=== PATIENT | male | born 1940 | race Caucasian/White ===

== ENCOUNTER 2018-04-25 14:58 | Inpatient (IN) ==
[2018-04-25] MEDS ORDERED: Naloxone 0.4 MG/ML INJ IVP PRN (17:05)
[2018-04-25] MEDS ORDERED: Acetaminophen 325 MG TABLET PO PRN (17:05)
--- NOTE | 2018-04-25 17:22 | Internal Med History&Physical ---
Date of Encounter: 04/25/18 Time of Encounter: 16:00 Internal Medicine - H&P: HPI Chief complaint: Bilateral feet swelling Admitted From: Home Plans for Post Hospital Care: Home History of present illness: Mr. Birch is a 78 year old male presented to [facility] emergency room for bilateral feet swelling and the right mann wound. Patient said he started to have the swelling and the wound for about 2-3 weeks. Gradually getting worse. Patient was treated as cellulitis in [facility] with by mouth antibiotics for about 5 days, no improvement. Patient denies fever, shortness of breath, nausea, or urination symptoms. Patient denies exertional intolerance. Patient said he has good urinary output. Patient had bilateral hip surgery 5 months ago but denies long-term bedrest. Patient denies recent travel. Patient has no pain at rest but complaining of pain on both feet on walking. Patient was transferred to our hospital for further management. Past Med Surg Social Fam HX - Past Medical History Medical history: COPD, hyperlipidemia, hypertension Additional medical history: urinary hesitancy Psychiatric history: no psych history - Past Surgical History Surgical History: herniorrhaphy, hip replacement, orthopedic, other, other Additional surgical history: ankle surgery. hip bilateral - Social History Smoking Status: Former smoker Smokeless Tobacco Status: No Alcohol use: occasionally Drug use: none - Family History Mother History Unknown: Yes Internal Medicine - H&P: Meds Aspirin 81 mg PO DAILY 02/16/16 [History] Benazepril HCl 10 mg PO DAILY 02/16/16 [History] Colestipol HCl [Colestid] 2 gm PO BID 02/16/16 [History] Simvastatin [Zocor] 40 mg PO HS 02/16/16 [History] Diphenoxylate/Atropine [Lomotil 2.5 mg/0.025 mg] 1 each PO QID PRN 10/08/16 [History] Folic Acid 1 mg PO DAILY 10/08/16 [History] Furosemide [Lasix] 40 mg PO DAILY 10/08/16 [History] Metoprolol [Lopressor] 25 mg PO BID 10/08/16 [History] Thiamine Mononitrate [Vitamin B-1] 100 mg PO DAILY 10/08/16 [History] HYDROcodone/Acet 5/325 mg [[place] 5-325 mg] 2 tab PO Q4HR PRN #15 tablet 10/09/16 [Rx] Allergy/AdvReac Type Severity Reaction Status Date / Time Sulfa (Sulfonamide Allergy See Verified 10/08/16 12:24 Antibiotics) Comments All Systems PM: A 10-system review of systems was performed and is negative for pertinent findings except as documented above in the HPI. - Constitutional Vitals: Temp Pulse BP Pulse Ox 97.4 F L 96 120/67 92 04/25/18 16:33 04/25/18 16:33 04/25/18 16:33 04/25/18 16:33 Exam: Pt is AAO x 3, in NAD HEENT: NC/AT, PERRL Neck: Supple, no JVD, no LAD Lungs: CTA b/l Heart: S1S2, RRR, HR 103 Abd: Soft, nontender, BS present Ext: ROM wnl, B/L feet pitting edema 3 +, pt has right mann wound 5 x 5cm, with surrounding redness, skin is cold, sensation intact. Neuro: No focal deficit Internal Med - H&P Results - EKG Data -: EKG Interpreted by Myself EKG shows normal: sinus rhythm Rate: tachycardia - Assessment and plan (1) Bilateral swelling of feet and ankles Current Visit: Yes Status: Acute Assessment and plan: Etiology is undetermined. Patient has bilateral feet coldness, wound on right mann, history of smoking (heavy smoker 2 packs a day, quit 4 years ago), need to rule out PVD. Also need to rule out DVT as patient has a recent hip surgery. Less likely CHF as patient denies shortness of breath or exertional intolerance. - Doppler venous and arterial study - Echocardiogram - BNP - Consult wound care for wound - Consul vascular surgery (2) Cellulitis Current Visit: Yes Status: Acute Assessment and plan: Patient has right-sided wound with surrounding redness. Patient has a mild leukocytosis. Consider cellulitis. Patient has no fever, no toxic reaction. - Place patient on IV Rocephin - Continue wound care Qualifiers: Site of cellulitis: extremity Site of cellulitis of extremity: lower extremity Laterality: right Qualified Code(s): L03.115 - Cellulitis of right lower limb (3) Leg wound, right Current Visit: Yes Status: Acute Assessment and plan: Management as above Qualifiers: Encounter type: initial encounter Qualified Code(s): S81.801A - Unspecified open wound, right lower leg, initial encounter (4) Hypertension Current Visit: Yes Status: Acute Assessment and plan: Continue home medication metoprolol. Hold MONIKA inhibitor because of mild elevated creatinine level. Hydralazine IV as needed. Qualifiers: Hypertension type: essential hypertension Qualified Code(s): I10 - Essential (primary) hypertension (5) CKD (chronic kidney disease) Current Visit: Yes Status: Acute Assessment and plan: Creatinine 1.4 in [facility]. Baseline 0.87 in 2017. No recent results to compare. CKD vs VALERIE?. Will repeat BMP. Avoid nephrotoxic medication. Closely follow-up renal function. Qualifiers: Chronic kidney disease stage: stage 3 (moderate) Qualified Code(s): N18.3 - Chronic kidney disease, stage 3 (moderate) (6) Hyperglycemia Current Visit: Yes Status: Acute Assessment and plan: Patient denies history of diabetes. In [facility], glucose level 330. Will check hemoglobin A1c and closely follow up glucose level. (7) DVT prophylaxis Current Visit: Yes Status: Acute Assessment and plan: Heparin subcutaneously (8) Elevated liver enzymes Current Visit: Yes Status: Acute Assessment and plan: In [facility] AST 77, ALT 45, patient has history of alcohol use (1 beer per day), will check hepatitis panel and ultrasound liver. - Time Spent With Patient Total time spent is greater than 50% in coordination of care (as documented) at patient's floor/unit and/or counseling patient: 30 min 25 - 35 minutes
[2018-04-25 17:56] LABS: Basophils % 0.2 %; Hemoglobin 13.9 g/dL (12.9-16.9); Immature Granulocytes % 2.8 % (0-4); Lymphocytes # 0.6 K/mcL (0.6-4.6); Lymphocytes % 4.2 %; Mean Corpuscular HGB Conc 32.3 g/dL (31.6-35.5); Mean Corpuscular Hemoglobin 28.8 pg (28.0-33.3); Mean Corpuscular Volume 89.2 fL (83.0-100.0); Monocytes # 0.9 K/mcL (0.0-1.3); Neutrophils # 11.3 K/mcL (1.6-8.9); Platelet Count 145 K/mcL (140-400); Red Blood Count 4.82 M/mcL (4.19-5.50); Red Cell Distribution Width 15.9 % (11.5-14.5); Segmented Neutrophils % 85.8 %
[2018-04-25 18:01] LABS: INR 1.1; Prothrombin Time 12.7 Seconds (9.4-12.1)
[2018-04-25] MEDS: *HR* Heparin 5,000 UNIT/ML VIAL SQ SCH (18:08)
[2018-04-25] MEDS: cefTRIAXone 2,000 MG in Water for inj. (sterile) 20 ML 20 ML IVP SCH (18:08)
[2018-04-25 18:20] LABS: Estimated Average Glucose 192 mg/dl; Hemoglobin A1C 8.3 %
[2018-04-25] MEDS ORDERED: *HR* Dextrose 50 % in Water (Syg) 50 ML SYRINGE IVP PRN (19:01)
[2018-04-25] MEDS ORDERED: D5% in Water 1,000 ML IVC PRN (19:01)
[2018-04-25] MEDS ORDERED: Dextrose Gel 15 GM/37.5 ML TUBE PO PRN ×2 (19:01)
[2018-04-25 19:29] LABS: Alanine Aminotransferase 25 Units/L (7-52); Aspartate Amino Transferase 55 Units/L (13-39)
[2018-04-25 19:30] LABS: Albumin 3.3 g/dL (3.5-5.7); Albumin/Globulin Ratio 1.1 (1.1-2.2); Alkaline Phosphatase 48 Units/L (34-104); BUN/Creatinine Ratio 57 (6-26); Bilirubin,Total 0.6 mg/dL (0.3-1.0); Blood Urea Nitrogen 35 mg/dL (8-23); Calcium 8.9 mg/dL (8.6-10.3); Carbon Dioxide 26 mEq/L (23-29); Chloride 102 mEq/L (98-107); Globulin 2.9 g/dL (2.4-3.5); Glucose 260 mg/dL (70-105); Osmolality,Calculated 305 (280-300); Sodium 139 mEq/L (136-145); Total Protein 6.2 g/dL (6.4-8.9); eGFR For Non-African Americans > 60 (> 60)
[2018-04-25] MEDS ORDERED: Perflutren Lipid Microsphere 1.3 ML in 0.9 % Sodium Chloride 8.7 ML IVP ONE (20:49)
[2018-04-25] MEDS: Insulin LISPRO 300 UNITS/3 ML VIAL SQ SCH (21:49)
[2018-04-26 03:46] LABS: Basophils # 0.1 K/mcL (0.0-0.2); Basophils % 0.4 %; Hematocrit 38.6 % (37.5-50.1); Hemoglobin 12.5 g/dL (12.9-16.9); Immature Granulocytes % 2.5 % (0-4); Lymphocytes % 7.7 %; Mean Corpuscular HGB Conc 32.4 g/dL (31.6-35.5); Mean Corpuscular Hemoglobin 29.1 pg (28.0-33.3); Mean Corpuscular Volume 89.8 fL (83.0-100.0); Mean Platelet Volume 10.5 fL (9.4-12.4); Monocytes # 1.3 K/mcL (0.0-1.3); Monocytes % 9.4 %; Neutrophils # 10.7 K/mcL (1.6-8.9); Platelet Count 147 K/mcL (140-400); Red Cell Distribution Width 15.9 % (11.5-14.5)
[2018-04-26 04:03] LABS: BUN/Creatinine Ratio 32 (6-26); Blood Urea Nitrogen 30 mg/dL (8-23); Carbon Dioxide 25 mEq/L (23-29); Chloride 105 mEq/L (98-107); Potassium 4.2 mEq/L (3.5-5.1); Sodium 140 mEq/L (136-145)
[2018-04-26 04:04] LABS: Calcium 8.9 mg/dL (8.6-10.3); Chol/HDL Ratio 3.5 (0-4.9); Cholesterol 169 mg/dL (< 200); Glucose 197 mg/dL (70-105); HDL Cholesterol 48 mg/dL (40-59); LDL Cholesterol,Calculated 91 mg/dL (0-99); Magnesium 2.1 mg/dL (1.6-2.6); Osmolality,Calculated 302 (280-300); Triglycerides 149 mg/dL (< 150); eGFR For Non-African Americans > 60 (> 60)
[2018-04-26 04:20] LABS: Hepatitis A Antibody IgM Nonreactive (Nonreactive); Hepatitis B Core IgM Nonreactive (Nonreactive); Hepatitis B Surface Antigen Nonreactive (Nonreactive); Hepatitis C Virus Antibody Nonreactive (Nonreactive)
[2018-04-26 06:23] LABS: Bilirubin,Urine Negative (Negative); Blood,Urine Large (Negative); Clarity,Urine Turbid (Clear); Color,Urine Yellow (Yellow); Glucose,Urine (UA) Normal (Normal); Ketones,Urine Negative (Negative); Leukocyte Esterase,Urine Large (Negative); Nitrite,Urine Negative (Negative); PH,Urine 5.5 pH Units (5.0-8.0); Protein,Urine 100 mg/dL (Neg-Trace); Specific Gravity,Urine 1.012 (1.010-1.025); Urobilinogen,Urine Normal (Normal)
[2018-04-26] MEDS: *HR* Heparin 5,000 UNIT/ML VIAL SQ SCH ×2 (06:24→17:19)
[2018-04-26 06:25] LABS: Squamous Epithelial Cell,Urine Many per lpf (None-Few); WBC,Urine TNTC per hpf (0-3)
[2018-04-26 06:37] LABS: Yeast,Urine Present per hpf (None Seen)
[2018-04-26 06:38] LABS: Bacteria,Urine Present per hpf (None-Few); RBC,Urine Present per hpf (0-3)
[2018-04-26] MEDS: Furosemide 40 MG TABLET PO SCH (10:20)
[2018-04-26] MEDS: Insulin LISPRO 300 UNITS/3 ML VIAL SQ SCH ×4 (10:21→19:42)
[2018-04-26] MEDS: Aspirin 81 MG TAB.CHEW PO SCH (10:21)
--- NOTE | 2018-04-26 11:20 | Internal Med Progress Note ---
Hospitalist Progress Note - Encounter Date of Encounter: 04/26/18 Time of Encounter: 09:00 - Subjective Interval History: Pt laying on bed comfortably, denies pain or fever. Vitals stable. - Exam Vitals: Temp Pulse Resp BP Pulse Ox 97.6 F 95 15 105/59 92 04/26/18 06:36 04/26/18 06:36 04/26/18 06:36 04/26/18 06:36 04/26/18 06:36 Exam: Pt is AAO x 3, in NAD HEENT: NC/AT, PERRL Neck: Supple, no JVD, no LAD Lungs: CTA b/l Heart: S1S2, RRR, HR 103 Abd: Soft, nontender, BS present Ext: ROM wnl, B/L feet pitting edema 3 +, slightly improved, pt has right mann wound 5 x 5cm, with surrounding redness, skin is warm, sensation intact. Neuro: No focal deficit - Assessment and Plan (1) Bilateral swelling of feet and ankles Current Visit: Yes Status: Acute Assessment and Plan: Etiology is undetermined. Skin is not cold any more. Vascular study shows di ffuse plaque. Negative for DVT/SVT b/l, Echo shows EF 60-65%. BNP 69 - Less likely CHF - EV HIRAM ordered by vascular - Will resume home dose po lasix as repeat renal function is normal. - Pt is not on any Calcium channel blockers (2) Cellulitis Current Visit: Yes Status: Acute Assessment and Plan: Patient has right-sided wound with surrounding redness. Patient has a mild leukocytosis. Consider cellulitis. Patient has no fever, no toxic reaction. - Place patient on IV Rocephin to finish a 5 day course - Continue wound care (3) Leg wound, right Current Visit: Yes Status: Acute Assessment and Plan: Management as above (4) Hypertension Current Visit: Yes Status: Acute Assessment and Plan: Continue home medication metoprolol. Hold MONIKA inhibitor because of mild elevated creatinine level. BP is not high. (5) CKD (chronic kidney disease) Current Visit: Yes Status: Acute Assessment and Plan: Repeat BMP in our hospital shows normal Cr. Cont closely monitor renal function. (6) DVT prophylaxis Current Visit: Yes Status: Acute Assessment and Plan: Heparin subcutaneously (7) Elevated liver enzymes Current Visit: Yes Status: Acute Assessment and Plan: In [facility] AST 77, ALT 45, patient has history of alcohol use (1 beer per day), repeat liver function improved but still mild AST elevation - Hepatitis penal negative for Hep A,B, and C - US liver shows fatty liver - Advise pt stop alcohol. (8) Diabetes mellitus Current Visit: Yes Status: Acute Assessment and Plan: Hb A1C 8.3, consider newly diagnosed DM. Place pt on SSI and DM diet. Monitor Glu. DVT Prophylaxis: Heparin SC - Time Spent with Patient Total time spent is greater than 50% in coordination of care (as documented) at patient's floor/unit and/or counseling patient: 30 min 25 - 35 minutes Plan of Care Discussed with: patient Internal Medicine: Result - Labs CBC & Chem 7: 04/26/18 02:55 04/26/18 02:55 Labs: Short CBC 04/25/18 04/26/18 Range/Units 17:31 02:55 WBC 13.2 H 13.3 H (4.3-11.1) K/mcL Hgb 13.9 12.5 L (12.9-16.9) g/dL Hct 43.0 38.6 (37.5-50.1) % Plt Count 145 147 (140-400) K/mcL Neutrophils # 11.3 H 10.7 H (1.6-8.9) K/mcL BMP 04/25/18 04/26/18 17:31 02:55 Sodium 139 140 Potassium 4.0 4.2 Chloride 102 105 Carbon Dioxide 26 25 BUN 35 H 30 H Creatinine 0.61 L 0.93 Glucose 260 H 197 H Calcium 8.9 8.9 Liver Function 04/25/18 Range/Units 17:31 Total Bilirubin 0.6 (0.3-1.0) mg/dL AST 55 H (13-39) Units/L ALT 25 (7-52) Units/L Alkaline Phosphatase 48 (34-104) Units/L Albumin 3.3 L (3.5-5.7) g/dL Urine 04/26/18 Range/Units 06:16 Urine Color Yellow (Yellow) Urine Clarity Turbid A (Clear) Urine pH 5.5 (5.0-8.0) pH Units Ur Specific [place] 1.012 (1.010-1.025) Urine Protein 100 H (Neg-Trace) mg/dL Urine Glucose (UA) Normal (Normal) mg/dL - ABG Interpretation ABG results: PT/INR, D-dimer PT 12.7 Seconds (9.4-12.1) H 04/25/18 17:31 - Impressions Impressions Liver Ultrasound 04/26/18 09:00 IMPRESSION: 1. Cholelithiasis but no evidence of acute cholecystitis. 2. Fatty infiltration of the liver but no focal disease. 3. Right nephrolithiasis but no evidence of obstructive uropathy. Right renal cyst. D/ /26/2018 09:53:11 Raeann Crabtree MD / dillon Interpreting Provider: Raeann Crabtree MD Consult Discharge Plan - Plan Referrals: Roslyn Robles [Primary Care Provider] - (2) Cellulitis Qualifiers: Site of cellulitis: extremity Site of cellulitis of extremity: lower extremity Laterality: right Qualified Code(s): L03.115 - Cellulitis of right lower limb (3) Leg wound, right Qualifiers: Encounter type: initial encounter Qualified Code(s): S81.801A - Unspecified open wound, right lower leg, initial encounter (4) Hypertension Qualifiers: Hypertension type: essential hypertension Qualified Code(s): I10 - Essential (primary) hypertension (5) CKD (chronic kidney disease) Qualifiers: Chronic kidney disease stage: stage 3 (moderate) Qualified Code(s): N18.3 - Chronic kidney disease, stage 3 (moderate) (8) Diabetes mellitus Qualifiers: Diabetes mellitus type: type 2 Diabetes mellitus middle or intermediate school principal insulin use: without middle or intermediate school principal use Diabetes mellitus complication status: without complication Qualified Code(s): E11.9 - Type 2 diabetes mellitus without complications
--- NOTE | 2018-04-26 12:54 | Vascular/Endovas Progress Note ---
Date of Encounter: 04/26/18 Time of Encounter: 13:00 - Assessment and plan (1) Bilateral swelling of feet and ankles Current Visit: Yes Status: Acute Two-week history of bilateral lower extremity edema. This may be due to lack of activity and prolonged dependent posture. Recommend elevation of lower extremities and physical therapy. - Subjective Interval history: See consult note Vital Signs, Last 4 Hours Temp Pulse Resp BP Pulse Ox 04/26/18 11:00 97.6 F 96 15 90/47 93 Results 04/27/18 02:11 04/27/18 02:11 Lab Results, Last 24 hours 04/25/18 04/25/18 04/25/18 17:31 17:31 17:31 WBC 13.2 H Hgb 13.9 Hct 43.0 Plt Count 145 INR 1.1 Sodium 139 Potassium 4.0 Chloride 102 Carbon Dioxide 26 BUN 35 H Creatinine 0.61 L Glucose 260 H Calcium 8.9 Magnesium Total Bilirubin 0.6 AST 55 H ALT 25 Alkaline Phosphatase 48 B-Natriuretic Peptide 04/25/18 04/26/18 04/26/18 17:31 02:55 02:55 WBC 13.3 H Hgb 12.5 L Hct 38.6 Plt Count 147 INR Sodium 140 Potassium 4.2 Chloride 105 Carbon Dioxide 25 BUN 30 H Creatinine 0.93 Glucose 197 H Calcium 8.9 Magnesium 2.1 Total Bilirubin AST ALT Alkaline Phosphatase B-Natriuretic Peptide 69 Consult Discharge Plan - Plan Referrals: Roslyn Robles [Primary Care Provider] -
--- NOTE | 2018-04-26 12:58 | Vascular/Endovasc Consult Note ---
Date of Encounter: 04/26/18 Time of Encounter: 12:55 Assessment and Plan (1) Bilateral swelling of feet and ankles Current Visit: Yes Status: Acute Two-week history of bilateral lower extremity edema. This may be due to lack of activity and prolonged dependent posture. Recommend elevation of lower extremities and physical therapy. (2) Cellulitis Current Visit: Yes Status: Acute Patient has inflammatory changes of both pretibial regions. Patient has a wound on the right pretibial area. Agree with consultation to wound clinic for long- term care and maintenance. Patient would benefit from compression therapy of both lower extremities. Qualifiers: Site of cellulitis: extremity Site of cellulitis of extremity: lower extremity Laterality: unspecified laterality Qualified Code(s): L03.119 - Cellulitis of unspecified part of limb - History of Present Illness Consult date: 04/26/18 Consult reason: Lower extremity swelling and right lower extremity wound Chief complaint: Right lower extremity swelling and right lower extremity wound History of present illness: Mr. Birch is a 78 year old male Transferred from the emergency room at [facility] yesterday to [place] for further evaluation. The patient states that he has an approximate 2 week history of bilateral lower extremity swelling. He denies having previous problems with lower extremity swelling. In the course of the swelling he developed a blister on the right lower extremity and that is gone on to rupture and drain watery type of fluid. He now has a wound on the right calf from this blister. There was concern raised at [facility] whether there was a vascular issue and as they had no vascular surgery availability he was transferred here for further care. The patient lives alone. He does very little walking. He spends a great deal of time sitting in a chair with his legs in a dependent position and occasionally sleeps in a chair with his legs down. His primary care physician is Dr. Robles at [facility]. Patient denies any previous lower extremity arterial or venous problems requiring workup or surgery or endovascular interventions. The patient denies any previous myocardial infarctions or strokes. Noninvasive testing was performed last night. This included a venous duplex scan which was negative for acute or chronic deep venous thrombosis in the lower extremities. An arterial duplex scan was performed also last night. This showed that the patient has atherosclerotic plaque present in both lower extremities. He has a 50-75% stenosis of the proximal right superficial femoral artery. Physiologic testing was performed this morning in my presence. An ankle brachial index was obtained and was found to be normal bilaterally. Past Med Surg Social Fam HX - Past Medical History Medical history: COPD, hyperlipidemia, hypertension Additional medical history: urinary hesitancy Psychiatric history: no psych history - Past Surgical History Surgical History: herniorrhaphy, hip replacement, orthopedic, other, other Additional surgical history: ankle surgery. hip bilateral - Social History Smoking Status: Former smoker Smokeless Tobacco Status: No Alcohol use: occasionally Drug use: none - Family History Mother History Unknown: Yes Medications and Allergies Aspirin 81 mg PO DAILY 02/16/16 [History] Benazepril HCl 10 mg PO DAILY 02/16/16 [History] Colestipol HCl [Colestid] 2 gm PO BID 02/16/16 [History] Simvastatin [Zocor] 40 mg PO HS 02/16/16 [History] Diphenoxylate/Atropine [Lomotil 2.5 mg/0.025 mg] 1 each PO QID PRN 10/08/16 [History] Folic Acid 1 mg PO DAILY 10/08/16 [History] Furosemide [Lasix] 40 mg PO DAILY 10/08/16 [History] Metoprolol [Lopressor] 25 mg PO BID 10/08/16 [History] Thiamine Mononitrate [Vitamin B-1] 100 mg PO DAILY 10/08/16 [History] HYDROcodone/Acet 5/325 mg [[place] 5-325 mg] 2 tab PO Q4HR PRN #15 tablet 10/09/16 [Rx] Allergy/AdvReac Type Severity Reaction Status Date / Time Sulfa (Sulfonamide Allergy See Verified 10/08/16 12:24 Antibiotics) Comments All Systems Review: The remainder of the systems were reviewed and are negative Exam Vital Signs, Last 4 Hours Temp Pulse Resp BP Pulse Ox 04/26/18 11:00 97.6 F 96 15 90/47 93 General: Present: Conversant, No Apparent Distress HEENT: Present: Atraumatic, Normocephaly, Trachea midline Neck: Absent: JVD, Left Carotid bruit, Right Carotid bruit, Midline deformity, Tracheal deviation Cardiac: Present: Reg Rate and Rhythm, Normal S1 and S2, No Murmur. Absent: Irregular Rhythm Lungs: Present: Normal Breath Sounds, No Wheeze, Rales, Rhonchi Neuro: Present: Alert and responsive, No focal deficits noted, Cranial nerves grossly intact Abdomen: Present: Soft, Non-tender, Other (Obese. No abdominal bruits.). Absent: Masses Vascular: Present: Normal capillary refill, Bruit (Patient does have a left femoral bruit), Pulse, absent (Unable to palpate popliteal or ankle pulses bilaterally.), Pulse, normal (Femoral pulses are normal bilaterally.), Edema (The patient has pitting edema involving his feet and ankles and calves bilaterally. The edema is relatively symmetrical.), Color/Temperature (Bilateral feet are warm and pink. He has 2 second capillary refill bilaterally. I am unable to palpate the pulses though he has significant edema of both feet and ankle areas.). Absent: Surgical incisions, Amputation(s) Skin: Present: Wound/ulcer(s) (Patient has an excoriation relatively superficial wound on the mid anterior right pretibial region. This area measures approximately 4 x 4 centimeters. There is surrounding erythema. Of note the patient also has erythema in the left pretibial region. There is no ulceration however in the left lower extremity.), Other (There are no obvious varicose veins or palpable cords bilaterally. There are no findings to suggest previous venous stasis ulcerations.) Consult Discharge Plan - Plan Referrals: Roslyn Robles [Primary Care Provider] -
[2018-04-26] MEDS: cefTRIAXone 2,000 MG in Water for inj. (sterile) 20 ML 20 ML IVP SCH (17:18)
[2018-04-27 02:50] LABS: Basophils % 0.5 %; Eosinophils # 0.1 K/mcL (0.0-0.6); Eosinophils % 1.1 %; Hematocrit 35.4 % (37.5-50.1); Hemoglobin 11.2 g/dL (12.9-16.9); Immature Granulocytes % 3.2 % (0-4); Lymphocytes # 1.3 K/mcL (0.6-4.6); Lymphocytes % 17.5 %; Mean Corpuscular HGB Conc 31.6 g/dL (31.6-35.5); Mean Corpuscular Hemoglobin 28.6 pg (28.0-33.3); Mean Corpuscular Volume 90.5 fL (83.0-100.0); Mean Platelet Volume 10.3 fL (9.4-12.4); Monocytes # 0.7 K/mcL (0.0-1.3); Monocytes % 8.8 %; Neutrophils # 5.3 K/mcL (1.6-8.9); Platelet Count 143 K/mcL (140-400); Red Blood Count 3.91 M/mcL (4.19-5.50); Red Cell Distribution Width 15.9 % (11.5-14.5); Segmented Neutrophils % 68.9 %
[2018-04-27 03:09] LABS: BUN/Creatinine Ratio 31 (6-26); Blood Urea Nitrogen 28 mg/dL (8-23); Calcium 8.5 mg/dL (8.6-10.3); Carbon Dioxide 26 mEq/L (23-29); Chloride 106 mEq/L (98-107); Glucose 151 mg/dL (70-105); Osmolality,Calculated 298 (280-300); Potassium 3.9 mEq/L (3.5-5.1); Sodium 140 mEq/L (136-145); eGFR For Non-African Americans > 60 (> 60)
[2018-04-27] MEDS: *HR* Heparin 5,000 UNIT/ML VIAL SQ SCH ×2 (05:12→16:35)
[2018-04-27] MEDS: Aspirin 81 MG TAB.CHEW PO SCH (08:30)
[2018-04-27] MEDS: Insulin LISPRO 300 UNITS/3 ML VIAL SQ SCH ×4 (08:30→20:17)
[2018-04-27] MEDS: Furosemide 40 MG TABLET PO SCH ×2 (08:30→20:14)
--- NOTE | 2018-04-27 10:56 | Internal Med Progress Note ---
Hospitalist Progress Note - Encounter Date of Encounter: 04/27/18 Time of Encounter: 09:00 - Subjective Interval History: Pt feels better. Still swelling on b/l feet/ankle but slightly improved. Denies pain. Vitals stable. - Exam Vitals: Temp Pulse Resp BP Pulse Ox 97.4 F L 87 15 124/62 94 04/27/18 06:00 04/27/18 06:00 04/27/18 06:00 04/27/18 06:00 04/27/18 06:00 Exam: Pt is AAO x 3, in NAD HEENT: NC/AT, PERRL Neck: Supple, no JVD, no LAD Lungs: CTA b/l Heart: S1S2, RRR, HR 103 Abd: Soft, nontender, BS present Ext: ROM wnl, B/L feet pitting edema 3 +, slightly improved, pt has right mann wound 5 x 5cm, with surrounding redness, skin is warm, sensation intact. Neuro: No focal deficit - Assessment and Plan (1) Bilateral swelling of feet and ankles Current Visit: Yes Status: Acute Assessment and Plan: Most like due to less mobilization. Skin is not cold any more. Vascular study shows diffuse arterial plaque, Negative for DVT/SVT b/l, Echo shows EF 60-65%. BNP 69 - Less likely CHF - Vascular surgery consult appreciated. Less likely PVD caused edema - Will resume home dose po lasix as repeat renal function is normal. - Pt is not on any Calcium channel blockers - PT/OT and encourage patient mobilizing. Elevate legs during night. Compr ession therapy. (2) Cellulitis Current Visit: Yes Status: Acute Assessment and Plan: Patient has right-sided wound with surrounding redness. Patient has a mild leukocytosis. Consider cellulitis. Patient has no fever, no toxic reaction. - Place patient on IV Rocephin to finish a 5 day course - Continue wound care - WBC get down to normal after treatment. (3) Leg wound, right Current Visit: Yes Status: Acute Assessment and Plan: Management as above (4) Hypertension Current Visit: Yes Status: Acute Assessment and Plan: Continue home medication metoprolol and ACEI. BP is not high. (5) CKD (chronic kidney disease) Current Visit: Yes Status: Acute Assessment and Plan: Repeat BMP in our hospital shows normal Cr. Cont closely monitor renal function. (6) DVT prophylaxis Current Visit: Yes Status: Acute Assessment and Plan: Heparin subcutaneously (7) Elevated liver enzymes Current Visit: Yes Status: Acute Assessment and Plan: In [facility] AST 77, ALT 45, patient has history of alcohol use (1 beer per day), repeat liver function improved but still mild AST elevation - Hepatitis penal negative for Hep A,B, and C - US liver shows fatty liver - Advise pt stop alcohol. (8) Diabetes mellitus Current Visit: Yes Status: Acute Assessment and Plan: Hb A1C 8.3, consider newly diagnosed DM. Place pt on SSI and DM diet. Monitor Glu. (9) UTI (urinary tract infection) Current Visit: Yes Status: Acute Assessment and Plan: UA shows UTI, asymptomatic, on rocephin now for both cellulitis and UTI. DVT Prophylaxis: Subcutaneous heparin - Time Spent with Patient Total time spent is greater than 50% in coordination of care (as documented) at patient's floor/unit and/or counseling patient: 30 minutes 25 - 35 minutes Plan of Care Discussed with: patient Internal Medicine: Result - Labs CBC & Chem 7: 04/27/18 02:11 04/27/18 02:11 Labs: Short CBC 04/27/18 Range/Units 02:11 WBC 7.6 (4.3-11.1) K/mcL Hgb 11.2 L (12.9-16.9) g/dL Hct 35.4 L (37.5-50.1) % Plt Count 143 (140-400) K/mcL Neutrophils # 5.3 (1.6-8.9) K/mcL BMP 04/27/18 02:11 Sodium 140 Potassium 3.9 Chloride 106 Carbon Dioxide 26 BUN 28 H Creatinine 0.90 Glucose 151 H Calcium 8.5 L - ABG Interpretation ABG results: PT/INR, D-dimer PT 12.7 Seconds (9.4-12.1) H 04/25/18 17:31 Consult Discharge Plan - Plan Referrals: Roslyn Robles [Primary Care Provider] - (2) Cellulitis Qualifiers: Site of cellulitis: extremity Site of cellulitis of extremity: lower extremity Laterality: unspecified laterality Qualified Code(s): L03.119 - Cellulitis of unspecified part of limb (3) Leg wound, right Qualifiers: Encounter type: initial encounter Qualified Code(s): S81.801A - Unspecified open wound, right lower leg, initial encounter (4) Hypertension Qualifiers: Hypertension type: essential hypertension Qualified Code(s): I10 - Essential (primary) hypertension (5) CKD (chronic kidney disease) Qualifiers: Chronic kidney disease stage: stage 3 (moderate) Qualified Code(s): N18.3 - Chronic kidney disease, stage 3 (moderate) (8) Diabetes mellitus Qualifiers: Diabetes mellitus type: type 2 Diabetes mellitus fdc insulin use: without fdc use Diabetes mellitus complication status: without complication Qualified Code(s): E11.9 - Type 2 diabetes mellitus without complications (9) UTI (urinary tract infection) Qualifiers: Urinary tract infection type: acute cystitis Hematuria presence: without h ematuria Qualified Code(s): N30.00 - Acute cystitis without hematuria
[2018-04-27] MEDS: cefTRIAXone 2,000 MG in Water for inj. (sterile) 20 ML 20 ML IVP SCH (16:35)
[2018-04-27] MEDS: Colestipol Hcl [Colestid] 2 GM PO SCH (20:15)
[2018-04-28] MEDS: *HR* Heparin 5,000 UNIT/ML VIAL SQ SCH ×2 (05:55→18:47)
[2018-04-28 09:37] LABS: Basophils # 0.1 K/mcL (0.0-0.2); Basophils % 0.9 %; Eosinophils # 0.1 K/mcL (0.0-0.6); Eosinophils % 0.7 %; Hemoglobin 11.8 g/dL (12.9-16.9); Immature Granulocytes % 4.7 % (0-4); Lymphocytes # 1.4 K/mcL (0.6-4.6); Lymphocytes % 16.8 %; Mean Corpuscular HGB Conc 32.8 g/dL (31.6-35.5); Mean Corpuscular Hemoglobin 29.2 pg (28.0-33.3); Mean Corpuscular Volume 89.1 fL (83.0-100.0); Mean Platelet Volume 10.1 fL (9.4-12.4); Monocytes # 0.7 K/mcL (0.0-1.3); Monocytes % 8.7 %; Neutrophils # 5.6 K/mcL (1.6-8.9); Nucleated Red Blood Cells 0.2 /100 WBC (0); Platelet Count 155 K/mcL (140-400); Red Blood Count 4.04 M/mcL (4.19-5.50); Red Cell Distribution Width 15.6 % (11.5-14.5); Segmented Neutrophils % 68.2 %
[2018-04-28 09:55] LABS: BUN/Creatinine Ratio 25 (6-26); Blood Urea Nitrogen 19 mg/dL (8-23); Calcium 8.6 mg/dL (8.6-10.3); Carbon Dioxide 28 mEq/L (23-29); Chloride 103 mEq/L (98-107); Glucose 149 mg/dL (70-105); Osmolality,Calculated 293 (280-300); Potassium 3.9 mEq/L (3.5-5.1); Sodium 139 mEq/L (136-145); eGFR For Non-African Americans > 60 (> 60)
[2018-04-28] MEDS: Folic Acid 1 MG TABLET PO SCH (10:16)
[2018-04-28] MEDS: Aspirin 81 MG TAB.CHEW PO SCH (10:16)
[2018-04-28] MEDS: Furosemide 40 MG TABLET PO SCH ×2 (10:17→16:46)
[2018-04-28] MEDS: Thiamine (B-1) 100 MG TABLET PO SCH (10:17)
[2018-04-28] MEDS: Insulin LISPRO 300 UNITS/3 ML VIAL SQ SCH ×5 (10:18→22:58)
[2018-04-28] MEDS: Colestipol Hcl [Colestid] 2 GM PO SCH ×2 (11:38→22:08)
[2018-04-28] MEDS: predniSONE 20 MG TABLET PO SCH (12:59)
--- NOTE | 2018-04-28 13:33 | Internal Med Progress Note ---
Hospitalist Progress Note - Encounter Date of Encounter: 04/28/18 Time of Encounter: 09:00 - Subjective Interval History: Pt feels better. Still swelling on b/l feet/ankle but slightly improved. Improved mann redness. Denies pain. Vitals stable. No fever. - Exam Vitals: Temp Pulse Resp BP Pulse Ox 97.7 F 95 18 132/79 95 04/28/18 10:43 04/28/18 10:43 04/28/18 06:54 04/28/18 10:43 04/28/18 10:43 Exam: Pt is AAO x 3, in NAD HEENT: NC/AT, PERRL Neck: Supple, no JVD, no LAD Lungs: CTA b/l Heart: S1S2, RRR, HR 103 Abd: Soft, nontender, BS present Ext: ROM wnl, B/L feet pitting edema 3 +, slightly improved, pt has right mann wound 5 x 5cm, with surrounding redness, skin is warm, sensation intact. Neuro: No focal deficit - Assessment and Plan (1) Bilateral swelling of feet and ankles Current Visit: Yes Status: Acute Assessment and Plan: Most like due to less mobilization and chcf steroid use. Skin is not cold any more. Vascular study shows diffuse arterial plaque, Negative for DVT/SVT b/l, Echo shows EF 60-65%. BNP 69 - Less likely CHF - Vascular surgery consult appreciated. Less likely PVD caused edema - Will resume home dose po lasix as repeat renal function is normal, but may decrease or d/c if no further swelling. - Pt is not on any Calcium channel blockers - Patient was figured out use prednisone 60mg po daily since Mar 11, 2018, terminal computer operator high dose steroid may cause sodium retention and leg swelling. - PT/OT and encourage patient mobilizing. Elevate legs during night. Compression therapy. (2) Cellulitis Current Visit: Yes Status: Acute Assessment and Plan: Patient has right-sided wound with surrounding redness. Patient has a mild leukocytosis. Consider cellulitis. Patient has no fever, no toxic reaction. - Place patient on IV Rocephin may switch to po if symptoms improves - Continue wound care - WBC get down to normal after treatment. WBC high on admission is also possibly due to steroid use. (3) Leg wound, right Current Visit: Yes Status: Acute Assessment and Plan: Management as above (4) Hypertension Current Visit: Yes Status: Acute Assessment and Plan: Continue home medication metoprolol and ACEI. BP is not high. (5) CKD (chronic kidney disease) Current Visit: Yes Status: Acute Assessment and Plan: Cr high in [facility]. Repeat BMP in our hospital shows normal Cr x 3 days. Cont closely monitor renal function. (6) DVT prophylaxis Current Visit: Yes Status: Acute Assessment and Plan: Heparin subcutaneously (7) Elevated liver enzymes Current Visit: Yes Status: Acute Assessment and Plan: In [facility] AST 77, ALT 45, patient has history of alcohol use (1 beer per day), repeat liver function improved but still mild AST elevation - Hepatitis penal negative for Hep A,B, and C - US liver shows fatty liver - Advise pt stop alcohol. (8) Diabetes mellitus Current Visit: Yes Status: Acute Assessment and Plan: Hb A1C 8.3, figure out pt is on steroid since Mar 2018, new diagnosed DM vs steroid induced hyperglycemia. Place pt on SSI and DM diet. Monitor Glu. (9) UTI (urinary tract infection) Current Visit: Yes Status: Acute Assessment and Plan: UA shows UTI, asymptomatic, on rocephin now for both cellulitis and UTI. (10) Chronic steroid use Current Visit: Yes Status: Acute Assessment and Plan: Pt has prednisone 60mg po daily on home medication list. 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 Pt not follow up and was kept on this dose since then. Pt said he did temporal artery biopy in [facility]. - Pt denies vision change or headache at this point. Since he is on prednisone for over 6 weeks, will consider taper down to 40 mg po daily now, advise pt to f/u with ophthomologist and PCP for further tapering. - Pt's hyperglycemia, leukocytosis, leg edema may be caused by steroid use. - Try to obtain his biopsy results from [facility]. DVT Prophylaxis: Subcutaneous heparin - Time Spent with Patient Total time spent is greater than 50% in coordination of care (as documented) at patient's floor/unit and/or counseling patient: 30 min 25 - 35 minutes Plan of Care Discussed with: patient Internal Medicine: Result - Labs CBC & Chem 7: 04/28/18 08:24 04/28/18 08:24 Labs: Short CBC 11/26/18 Range/Units 08:24 WBC 8.1 (4.3-11.1) K/mcL Hgb 11.8 L (12.9-16.9) g/dL Hct 36.0 L (37.5-50.1) % Plt Count 155 (140-400) K/mcL Neutrophils # 5.6 (1.6-8.9) K/mcL BMP 04/28/18 08:24 Sodium 139 Potassium 3.9 Chloride 103 Carbon Dioxide 28 BUN 19 Creatinine 0.77 Glucose 149 H Calcium 8.6 - ABG Interpretation ABG results: PT/INR, D-dimer PT 12.7 Seconds (9.4-12.1) H 04/25/18 17:31 Consult Discharge Plan - Plan Referrals: Roslyn Robles [Primary Care Provider] - (2) Cellulitis Qualifiers: Site of cellulitis: extremity Site of cellulitis of extremity: lower extremity Laterality: unspecified laterality Qualified Code(s): L03.119 - Cellulitis of unspecified part of limb (3) Leg wound, right Qualifiers: Encounter type: initial encounter Qualified Code(s): S81.801A - Unspecified open wound, right lower leg, initial encounter (4) Hypertension Qualifiers: Hypertension type: essential hypertension Qualified Code(s): I10 - Essential (primary) hypertension (5) CKD (chronic kidney disease) Qualifiers: Chronic kidney disease stage: stage 3 (moderate) Qualified Code(s): N18.3 - Chronic kidney disease, stage 3 (moderate) (8) Diabetes mellitus Qualifiers: Diabetes mellitus type: type 2 Diabetes mellitus terminal computer operator insulin use: without chcf use Diabetes mellitus complication status: without complication Qualified Code(s): E11.9 - Type 2 diabetes mellitus without complications (9) UTI (urinary tract infection) Qualifiers: Urinary tract infection type: acute cystitis Hematuria presence: without hematuria Qualified Code(s): N30.00 - Acute cystitis without hematuria
[2018-04-28] MEDS: cefTRIAXone 1,000 MG in Water for inj. (sterile) 20 ML 10 ML IVP SCH (18:47)
[2018-04-28] MEDS: Metoprolol XL (24 HR) Succ 25 MG TAB.ER.24H PO SCH (22:07)
[2018-04-29 05:46] LABS: Basophils % 0.4 %; Eosinophils % 0.1 %; Hematocrit 35.2 % (37.5-50.1); Hemoglobin 11.5 g/dL (12.9-16.9); Immature Granulocytes % 4.4 % (0-4); Lymphocytes # 0.9 K/mcL (0.6-4.6); Lymphocytes % 9.9 %; Mean Corpuscular HGB Conc 32.7 g/dL (31.6-35.5); Mean Corpuscular Volume 88.7 fL (83.0-100.0); Mean Platelet Volume 10.2 fL (9.4-12.4); Monocytes # 0.8 K/mcL (0.0-1.3); Monocytes % 8.5 %; Neutrophils # 7.3 K/mcL (1.6-8.9); Nucleated Red Blood Cells 0.3 /100 WBC (0); Platelet Count 179 K/mcL (140-400); Red Blood Count 3.97 M/mcL (4.19-5.50); Red Cell Distribution Width 15.2 % (11.5-14.5); Segmented Neutrophils % 76.7 %
[2018-04-29 06:08] LABS: BUN/Creatinine Ratio 23 (6-26); Blood Urea Nitrogen 17 mg/dL (8-23); Calcium 8.6 mg/dL (8.6-10.3); Carbon Dioxide 29 mEq/L (23-29); Chloride 101 mEq/L (98-107); Glucose 167 mg/dL (70-105); Osmolality,Calculated 293 (280-300); Potassium 3.8 mEq/L (3.5-5.1); Sodium 139 mEq/L (136-145); eGFR For Non-African Americans > 60 (> 60)
[2018-04-29] MEDS: *HR* Heparin 5,000 UNIT/ML VIAL SQ SCH ×2 (06:14→16:54)
[2018-04-29] MEDS: Furosemide 40 MG TABLET PO SCH ×2 (09:00→16:54)
[2018-04-29] MEDS: Thiamine (B-1) 100 MG TABLET PO SCH (09:00)
[2018-04-29] MEDS: Aspirin 81 MG TAB.CHEW PO SCH (09:02)
[2018-04-29] MEDS: Metoprolol XL (24 HR) Succ 25 MG TAB.ER.24H PO SCH ×2 (09:02→20:18)
[2018-04-29] MEDS: predniSONE 20 MG TABLET PO SCH (09:03)
[2018-04-29] MEDS: Insulin LISPRO 300 UNITS/3 ML VIAL SQ SCH ×4 (09:09→22:25)
[2018-04-29] MEDS: Folic Acid 1 MG TABLET PO SCH (12:43)
[2018-04-29] MEDS: Colestipol Hcl [Colestid] 2 GM PO SCH ×2 (12:43→22:25)
--- NOTE | 2018-04-29 14:24 | Discharge Summary ---
- NOTES TO OUTPATIENT PROVIDER Notes to Outpatient Provider: Follow-up with your primary care within 1-2 weeks of hospital discharge. Date of Encounter: 04/29/18 Time of Encounter: 14:20 - Discharge Diagnosis (1) Cellulitis Priority: Primary Status: Acute Qualifiers: Site of cellulitis: extremity Site of cellulitis of extremity: lower extremity Laterality: unspecified laterality Qualified Code(s): L03.119 - Cellulitis of unspecified part of limb (2) Bilateral swelling of feet and ankles Priority: Secondary Status: Resolved (3) Leg wound, right Priority: Secondary Status: Resolved Qualifiers: Encounter type: initial encounter Qualified Code(s): S81.801A - Unspecified open wound, right lower leg, initial encounter (4) Hypertension Priority: Secondary Status: Resolved Qualifiers: Hypertension type: essential hypertension Qualified Code(s): I10 - Essential (primary) hypertension (5) CKD (chronic kidney disease) Priority: Secondary Status: Chronic Qualifiers: Chronic kidney disease stage: stage 3 (moderate) Qualified Code(s): N18.3 - Chronic kidney disease, stage 3 (moderate) (6) DVT prophylaxis Priority: Secondary Status: Chronic (7) Elevated liver enzymes Priority: Secondary Status: Resolved (8) Diabetes mellitus Priority: Secondary Status: Chronic Qualifiers: Diabetes mellitus type: type 2 Diabetes mellitus custodial insulin use: without intermodal customer service use Diabetes mellitus complication status: without complication Qualified Code(s): E11.9 - Type 2 diabetes mellitus without complications (9) UTI (urinary tract infection) Priority: Secondary Status: Chronic Qualifiers: Urinary tract infection type: acute cystitis Hematuria presence: without hematuria Qualified Code(s): N30.00 - Acute cystitis without hematuria (10) Chronic steroid use Priority: Secondary Status: Chronic Hospital course: Mr. Birch is a 78 year old male past medical history COPD, hyperlipidemia, hypertension. Patient was brought to the emergency room due to bilateral feet swelling and the right mann wound. Patient admitted to the hospital due to cellulitis of the lower extremity, treated with empiric IV antibiotics. Venous Dopplers of the lower extremity done:Findings LE Arterial Physiologic Exam: PVR: Right: The PVR waveforms are mildly diminished in the right ankle. Left: The PVR waveforms are mildly diminished in the left ankle. Vascular surgery consulted: lower extremity edema was due to prolonged dependent posture. Recommended elevation in the lower extremities of physical activity. Patient acute symptoms have resolved. PT/OT evaluated the patient recommended ECF/SNF. Patient is hemodynamically stable to be transferred to ECF/SNF - Time Spent with Patient Total time spent providing and/or coordinating discharge services: Greater than 30 minutes (40) - Discharge Medications Prescriptions: Amoxicillin/Clavulanate [Augmentin] 875 mg PO BIDWM 4 Days #8 tablet Home Medications: Aspirin [Adult Aspirin Regimen] 81 mg PO DAILY 04/26/18 [History] Benazepril HCl 15 mg PO DAILY 04/26/18 [History] Colestipol HCl [Colestid] 2 gm PO BID 04/26/18 [History] Folic Acid 1 mg PO DAILY 04/26/18 [History] Furosemide [Lasix] 40 mg PO BID 04/26/18 [History] Metoprolol Succinate [Toprol Xl] 25 mg PO BID 04/26/18 [History] Potassium Chloride [K-Tab ER] 10 meq PO BID 04/26/18 [History] Thiamine Mononitrate [Vitamin B-1] 100 mg PO DAILY 04/26/18 [History] predniSONE [PredniSONE] 60 mg PO DAILY 04/26/18 [History] Amoxicillin/Clavulanate [Augmentin] 875 mg PO BIDWM 4 Days #8 tablet 04/29/18 [Rx] Allergies/Adverse Reactions: Allergy/AdvReac Type Severity Reaction Status Date / Time Sulfa (Sulfonamide Allergy See Verified 10/08/16 12:24 Antibiotics) Comments Date of admission: 04/28/18 15:24 Primary care physician: Roslyn Robles Consults: 04/25/18 17:10 Consult to Wound Care [CONS] Routine Reason for Consult: Right mann wound Call Completed: No 04/25/18 17:29 Consult to Vascular Surgery [CONS] Routine Consulting Provider: Vascular Surgery Trin[facility] Reason for Consult: B/l feet coldness with wound on the right mann. Hx of smoking. Call Completed: Yes 04/26/18 13:03 Consult to Physical Therapy [CONS] Routine Comment: Evaluate, develop and implement POC Reason for Consult: 78-year-old white male who lives alone with decreased functional ability and significant bilateral lower extremity edema. Needs assessment for activities daily living and potential need for further outpatient care. Does patient have active BEDREST order?: No Is patient medically & hemodynamically stable?: Yes Patient assessed for mobility or mobilized this visit?: No 04/28/18 14:55 Consult to Occupational Therapy [CONS] Routine Comment: Evaluate, develop and implement POC Reason for Consult: PT already consulted; will need both PT and OT for insurance auth if SNF recommended Does patient have active BEDREST order?: No Is patient medically & hemodynamically stable?: Yes - Constitutional Vitals: Temp Pulse Resp BP Pulse Ox 98.3 F 90 18 128/72 90 04/29/18 11:27 04/29/18 11:27 04/29/18 11:27 04/29/18 11:04/29/18 11: Exam: Vitals: Reviewed. General: Alert and oriented x4. In no acute distress. Skin: Normal color, no rash, no lesions. HEENT: EOM, pupils equal, round and reactive. Cardiovascular: RRR, Normal S1 & S2, no rubs, murmurs or gallops. Lungs: Clear to auscultation bilaterally, no wheezes or crackles. Abdomen: Soft, non-tender, no rigidity. Extremities: Erythema on the left mann, no tenderness no edema. Right lower extremity with a clean dressing. Neurological: Normal cognition and motor skills. Pulses:Carotid and radial pulses normal +2. Rest of the physical exam is non contributory - Patient Status Disposition: Transfer SNF Condition: Fair Functional capacity at discharge: uses cane/walker Overall status at discharge: patient is progressing back to baseline - Discharge Instructions Follow Up With: Roslyn Robles [Primary Care Provider] - - Diet and Activity Activity: as per physical therapy Diet: diabetic diet
[2018-04-29] MEDS: cefTRIAXone 1,000 MG in Water for inj. (sterile) 20 ML 10 ML IVP SCH (16:54)
[2018-04-29] MEDS: Insulin DETEMIR 100 UNIT/ML X5UNITS SQ SCH (22:25)
[2018-04-30] MEDS: *HR* Heparin 5,000 UNIT/ML VIAL SQ SCH (05:55)
[2018-04-30 07:08] VITALS: BP 133/91
[2018-04-30] MEDS: Insulin LISPRO 300 UNITS/3 ML VIAL SQ SCH ×2 (09:34→11:25)
[2018-04-30] MEDS: Colestipol Hcl [Colestid] 2 GM PO SCH (11:23)
[2018-04-30] MEDS: Folic Acid 1 MG TABLET PO SCH (11:24)
[2018-04-30] MEDS: Insulin DETEMIR 100 UNIT/ML X5UNITS SQ SCH (11:24)
[2018-04-30] MEDS: Furosemide 40 MG TABLET PO SCH (11:25)
[2018-04-30] MEDS: Aspirin 81 MG TAB.CHEW PO SCH (11:25)
[2018-04-30] MEDS: Thiamine (B-1) 100 MG TABLET PO SCH (11:25)
--- NOTE | 2018-04-30 12:14 | Event Note ---
Date of Encounter: 04/30/18 Time of Encounter: 12:05 I have seen and evaluated this patient at bedside. Patient reports that he is feeling well. denies chest pain, shortness of breath, nausea or vomiting. Patient was refusing to participate on PT/OT. Explained to the patient the importance of participating. He was willing to participate. Physical Exam: Vitals: Reviewed. General: Alert and oriented x4. In no acute distress. Skin: Normal color, no rash, no lesions. Cardiovascular: RRR, Normal S1 & S2, no rubs, murmurs or gallops. Lungs: Clear to auscultation bilaterally, no wheezes or crackles. Abdomen: Soft, non-tender, no rigidity. NABS in all 4 quadrants. Extremities: Erythema on the left mann, no tenderness, no edema. Neurological: CN II-XII intact. PRest of the physical exam is non contributory Assessment and Plan 1. cellulitis of the lower extremity 2. HNT 3. CKD 4. Generalized weakness 5. DM 6. VTE prophylaxis Plan Patient being discharged, pending placement discharges summary dictated yesterday, refer to it for more details. Patient on IV antibiotics. Continue Levemir 10 units subcutaneous twice a day, and lispro low-dose sliding scale before meals. On lisinopril and metoprolol for blood pressure control Continue furosemide 40 mg by mouth twice a day. On prednisone 40 mg by mouth daily for possible giant cell arteritis, recommended to follow up with [facility] as outpatient for prednisone taper heparin SubQ for VTE prophyalxis
--- NOTE | 2018-04-30 13:03 | Physician Discharge Referral ---
[facility] Referral Info [facility] - Diagnosis (1) Cellulitis Priority: Primary Status: Acute (2) Bilateral swelling of feet and ankles Priority: Secondary Status: Resolved (3) Leg wound, right Priority: Secondary Status: Resolved (4) Hypertension Priority: Secondary Status: Resolved (5) CKD (chronic kidney disease) Priority: Secondary Status: Chronic (6) DVT prophylaxis Priority: Secondary Status: Chronic (7) Elevated liver enzymes Priority: Secondary Status: Resolved (8) Diabetes mellitus Priority: Secondary Status: Chronic (9) UTI (urinary tract infection) Priority: Secondary Status: Chronic (10) Chronic steroid use Priority: Secondary Status: Chronic Prognosis: Fair Aware of Diagnosis: Patient Aware of Prognosis: Patient - Transfer Medications Prescriptions: Amoxicillin/Clavulanate [Augmentin] 875 mg PO BIDWM 4 Days #8 tablet Home Medications: Aspirin [Adult Aspirin Regimen] 81 mg PO DAILY 04/26/18 [History] Benazepril HCl 15 mg PO DAILY 04/26/18 [History] Colestipol HCl [Colestid] 2 gm PO BID 04/26/18 [History] Folic Acid 1 mg PO DAILY 04/26/18 [History] Furosemide [Lasix] 40 mg PO BID 04/26/18 [History] Metoprolol Succinate [Toprol Xl] 25 mg PO BID 04/26/18 [History] Potassium Chloride [K-Tab ER] 10 meq PO BID 04/26/18 [History] Thiamine Mononitrate [Vitamin B-1] 100 mg PO DAILY 04/26/18 [History] predniSONE [PredniSONE] 60 mg PO DAILY 04/26/18 [History] Amoxicillin/Clavulanate [Augmentin] 875 mg PO BIDWM 4 Days #8 tablet 04/29/18 [Rx] Allergies/Adverse Reactions: Allergy/AdvReac Type Severity Reaction Status Date / Time Sulfa (Sulfonamide Allergy See Verified 10/08/16 12:24 Antibiotics) Comments - Respiratory Orders None Smoking Cessation: Smoking cessation has been advised. For more information, call the [place] Tobacco Quit Line at 7-418-QWKR-NOW. - Advance Directives Code Status: Full Code - Mobility Orders Ambulate - Rehabiliation Orders Rehab Potential: Fair Rehab Orders: Evaluation for Physical Therapy, Evaluation for Occupational Therapy - Diet Orders Regular CERTIFICATION: I certify that the transfer of the above named patient to an Extended Care Facility is necessary for the continuing treatment of the diagnosis listed. The above information is true and accurate reflection of patient's current condition. Confidential - Redisclosure prohibited without a patient's written consent.
[2018-04-30] MEDS: predniSONE 20 MG TABLET PO SCH (14:15)
[2018-04-30] MEDS: Metoprolol XL (24 HR) Succ 25 MG TAB.ER.24H PO SCH (14:15)
[2018-05-01] MEDS ORDERED: Cholestyramine 4 GM POWD.PACK PO SCH (07:00)
== END 2018-04-30 16:07 | DRG 603 ==
LOC: 2NENU → SUATTDRO 04-28 15:24
PROVIDERS: ADMIT Hospitalist; ATTEND Internal Medicine